=== PATIENT | female | born 1945 | race Caucasian/White ===

== ENCOUNTER 2024-11-05 13:23 | Emergency (ER) | payer MEDICARE, BC ==
[2024-11-05] MEDS: cefTRIAXone 2 GM Vial IVPUSH ONE (14:07)
[2024-11-05] MEDS: Sodium Chloride 0.9% 1,000 ML IV ONE (14:10)
== END 2024-11-05 15:45 | disposition home or self-care (01) ==
LOC: FB.ED 13:23
DX: N39.0 Urinary tract infection, site not specified (principal); N28.9 Disorder of kidney and ureter, unspecified; Z88.5 Allergy status to narcotic agent; Z88.2 Allergy status to sulfonamides; Z79.899 Other long term (current) drug therapy
CPT/HCPCS: 96361; 96374; 99283; J0696; J7030